=== PATIENT | male | born 1950 | race Caucasian/White ===

== ENCOUNTER 2016-05-22 05:28 | Inpatient (IN) | payer OTHER, MEDICARE ==
[~2016-05-22] VITALS: Ht 177.8 cm; Wt 106.6 kg
[~2016-05-22 05:28] MED LIST: ASPERDRINK81 MG PO; ASPIRIN81 M2 PO; JALYN 0.5-0.41 EACH PO; KEFLEX500 MG PO; LIPITOR80 MG PO; LISINOPRIL5 MG PO; LOW DOSE ASPIRI81 M1 PO; MULTIVITAMINS1 EAC3 PO; NORVASC5 MG PO; ONE DAILY1 EAC3 PO; PERCOCET 5/31 TABLET PO; PLAVIX75 MG PO; PRADAXA150 MG PO; Pradaxa PO; TOPROL XL50 MG PO; VISTARIL25 MG PO; ZETIA10 MG PO
[2016-05-22 07:41] LABS: BASOPHIL COUNT 0.1 K/uL (0-0.1); EOSINOPHIL COUNT 0.5 K/uL (0-0.3); HEMATOCRIT 55.3 % (38.0-50.0); IMMATURE GRANULOCYTE (%) 0.2 % (0.0-0.7); LYMPHOCYTE COUNT 0.9 K/uL (1.0-2.8); MCH 32.2 PG (29.0-34.0); MCHC 34.7 G/DL (30.0-36.0); MCV 92.6 FL (86-99); MEAN PLAT.VOLUME 12.3 uM^3 (9.0-12.4); MONOCYTE (%) 9.8 % (3-12); MONOCYTE COUNT 1.1 K/uL (0-0.8); NEUTROPHIL (%) 77.4 % (45-76); NEUTROPHIL COUNT 8.8 K/uL (1.8-6.4); PLATELET COUNT 162 K/uL (156-360); RBC DIS.WIDTH-CV 14.2 % (11.8-14.6); RBC DIS.WIDTH-SD 47.8 % (39-53); RED BLOOD COUNT 5.97 M/uL (4.00-5.50); WHITE BLOOD COUNT 11.3 K/uL (4.1-10.2)
[2016-05-22 08:11] LABS: ALKALINE PHOSPHATASE 81 IU/L (3-129); ANION GAP 9 MEQ/L (2-14); CHLORIDE 105 MEQ/L (99-109); GFR ESTIMATE (CALCULATED) > 59 mL/min/; GLUCOSE 117 mg/dL (70-99); SAMPLE HEMOLYSIS CHECK 0; SAMPLE ICTERIC CHECK 0; SAMPLE LIPEMIA CHECK 0; SODIUM 137 MEQ/L (136-147); TOTAL BILIRUBIN 1.1 MG/DL (0.0-1.0); UREA NITROGEN (BUN) 14 mg/dL (9-23)
[2016-05-22 09:14] LABS: AMYLASE 91 IU/L (1-118)
[2016-05-22] MEDS ORDERED: ASPIR-LOW81 MG PO (10:26)
[2016-05-22] MEDS ORDERED: OMEPRAZOLE40 M1 PO (10:28)
[2016-05-22] MEDS ORDERED: MULTI VITAMIN1 EACH PO (10:28)
[2016-05-22] MEDS ORDERED: AMOX TR-K CLV1 EAC4 PO (10:28)
[2016-05-22] MEDS ORDERED: ZOLPIDEM TARTRA10 MG PO (10:29)
[2016-05-22 12:58] VITALS: BP 120/83
[2016-05-22 15:54] LABS: METH RESISTANT S AUREUS PCR NEGATIVE (NEGATIVE)
[2016-05-22 16:00] LABS: PROBE CHECK PASS; SPECIMEN PROCESSING CONTROL PASS
[2016-05-22 20:05] VITALS: BP 117/66
[2016-05-22 22:26] VITALS: BP 102/56
[2016-05-23 06:42] LABS: BASOPHIL COUNT 0.1 K/uL (0-0.1); EOSINOPHIL (%) 5.9 % (0-5); EOSINOPHIL COUNT 0.6 K/uL (0-0.3); HEMATOCRIT 49.1 % (38.0-50.0); IMMATURE GRANULOCYTE (%) 0.1 % (0.0-0.7); LYMPHOCYTE COUNT 1.3 K/uL (1.0-2.8); MCH 32.1 PG (29.0-34.0); MCV 94.4 FL (86-99); MONOCYTE (%) 10.6 % (3-12); NEUTROPHIL (%) 69.3 % (45-76); NEUTROPHIL COUNT 6.7 K/uL (1.8-6.4); PLATELET COUNT 159 K/uL (156-360); RBC DIS.WIDTH-CV 14.5 % (11.8-14.6); RBC DIS.WIDTH-SD 50.3 % (39-53); WHITE BLOOD COUNT 9.7 K/uL (4.1-10.2)
[2016-05-23 06:52] LABS: ANION GAP 8 MEQ/L (2-14); CHLORIDE 105 MEQ/L (99-109); GFR ESTIMATE (CALCULATED) > 59 mL/min/; GLUCOSE 98 mg/dL (70-99); POTASSIUM 4.4 MEQ/L (3.7-5.4); SAMPLE HEMOLYSIS CHECK 1; SAMPLE ICTERIC CHECK 0; SAMPLE LIPEMIA CHECK 0; SODIUM 136 MEQ/L (136-147); UREA NITROGEN (BUN) 14 mg/dL (9-23)
[2016-05-23 08:14] VITALS: BP 114/72
[2016-05-23 16:48] VITALS: BP 113/80
[2016-05-23 23:12] VITALS: BP 115/65
[2016-05-24 07:23] VITALS: BP 136/79
[2016-05-24 07:35] LABS: BASOPHIL COUNT 0.1 K/uL (0-0.1); EOSINOPHIL (%) 7.1 % (0-5); EOSINOPHIL COUNT 0.7 K/uL (0-0.3); HEMATOCRIT 48.3 % (38.0-50.0); IMMATURE GRANULOCYTE (%) 0.1 % (0.0-0.7); LYMPHOCYTE COUNT 2.1 K/uL (1.0-2.8); MCHC 32.7 G/DL (30.0-36.0); MCV 94.7 FL (86-99); MEAN PLAT.VOLUME 12.3 uM^3 (9.0-12.4); NEUTROPHIL COUNT 5.3 K/uL (1.8-6.4); PLATELET COUNT 154 K/uL (156-360); RBC DIS.WIDTH-CV 14.4 % (11.8-14.6); RBC DIS.WIDTH-SD 49.8 % (39-53); WHITE BLOOD COUNT 9.1 K/uL (4.1-10.2)
[2016-05-24 08:05] LABS: ALKALINE PHOSPHATASE 67 IU/L (3-129); ANION GAP 7 MEQ/L (2-14); CHLORIDE 106 MEQ/L (99-109); GFR ESTIMATE (CALCULATED) > 59 mL/min/; GLUCOSE 103 mg/dL (70-99); POTASSIUM 5.1 MEQ/L (3.7-5.4); SAMPLE HEMOLYSIS CHECK 0; SAMPLE ICTERIC CHECK 0; SAMPLE LIPEMIA CHECK 0; SODIUM 140 MEQ/L (136-147); UREA NITROGEN (BUN) 14 mg/dL (9-23)
[2016-05-24 08:09] LABS: TOTAL BILIRUBIN 0.8 MG/DL (0.0-1.0)
[2016-05-24 16:30] VITALS: BP 108/69
[2016-05-24 22:43] VITALS: BP 141/74
[2016-05-25 06:15] LABS: BASOPHIL COUNT 0.1 K/uL (0-0.1); EOSINOPHIL (%) 4.3 % (0-5); EOSINOPHIL COUNT 0.5 K/uL (0-0.3); HEMATOCRIT 47.2 % (38.0-50.0); IMMATURE GRANULOCYTE (%) 0.2 % (0.0-0.7); LYMPHOCYTE COUNT 1.6 K/uL (1.0-2.8); MCH 31.4 PG (29.0-34.0); MCHC 33.9 G/DL (30.0-36.0); MCV 92.5 FL (86-99); MEAN PLAT.VOLUME 12.2 uM^3 (9.0-12.4); MONOCYTE (%) 11.1 % (3-12); MONOCYTE COUNT 1.3 K/uL (0-0.8); NEUTROPHIL (%) 69.4 % (45-76); NEUTROPHIL COUNT 7.8 K/uL (1.8-6.4); PLATELET COUNT 166 K/uL (156-360); RBC DIS.WIDTH-CV 13.8 % (11.8-14.6); RBC DIS.WIDTH-SD 46.9 % (39-53); WHITE BLOOD COUNT 11.3 K/uL (4.1-10.2)
[2016-05-25 06:40] LABS: ANION GAP 9 MEQ/L (2-14); CHLORIDE 105 MEQ/L (99-109); GFR ESTIMATE (CALCULATED) > 59 mL/min/; GLUCOSE 121 mg/dL (70-99); POTASSIUM 4.3 MEQ/L (3.7-5.4); SAMPLE HEMOLYSIS CHECK 1; SAMPLE ICTERIC CHECK 0; SAMPLE LIPEMIA CHECK 0; SODIUM 137 MEQ/L (136-147); UREA NITROGEN (BUN) 11 mg/dL (9-23)
[2016-05-25 07:22] VITALS: BP 143/93
[2016-05-25 16:32] VITALS: BP 158/89
[2016-05-25 21:16] LABS: POINT-OF-CARE METER ID UU13113725
[2016-05-25 22:50] VITALS: BP 152/88
[2016-05-26 06:29] LABS: EOSINOPHIL (%) 3.9 % (0-5); EOSINOPHIL COUNT 0.4 K/uL (0-0.3); IMMATURE GRANULOCYTE (%) 0.2 % (0.0-0.7); LYMPHOCYTE COUNT 1.6 K/uL (1.0-2.8); MONOCYTE (%) 10.9 % (3-12); MONOCYTE COUNT 1.1 K/uL (0-0.8); NEUTROPHIL COUNT 7.2 K/uL (1.8-6.4)
[2016-05-26 06:52] LABS: ANION GAP 8 MEQ/L (2-14); CHLORIDE 105 MEQ/L (99-109); GFR ESTIMATE (CALCULATED) > 59 mL/min/; GLUCOSE 119 mg/dL (70-99); POTASSIUM 4.2 MEQ/L (3.7-5.4); SAMPLE HEMOLYSIS CHECK 0; SAMPLE ICTERIC CHECK 0; SAMPLE LIPEMIA CHECK 0; SODIUM 137 MEQ/L (136-147); UREA NITROGEN (BUN) 9 mg/dL (9-23)
[2016-05-26 07:28] LABS: HEMATOCRIT 49.2 % (38.0-50.0); MCH 30.8 PG (29.0-34.0); MCHC 33.3 G/DL (30.0-36.0); MCV 92.3 FL (86-99); RBC DIS.WIDTH-CV 13.8 % (11.8-14.6); RBC DIS.WIDTH-SD 46.6 % (39-53); RED BLOOD COUNT 5.33 M/uL (4.00-5.50); WHITE BLOOD COUNT 10.4 K/uL (4.1-10.2)
[2016-05-26 08:04] LABS: MEAN PLAT.VOLUME 13.1 uM^3 (9.0-12.4); PLAT.SUFFICIENCY ADEQUATE; PLATELET COUNT 174 K/uL (156-360); USER ID SDF
[2016-05-26 08:38] VITALS: BP 161/97
[2016-05-26 16:17] VITALS: BP 162/83
[2016-05-26 23:28] VITALS: BP 142/89
[2016-05-27 06:12] LABS: BASOPHIL COUNT 0.1 K/uL (0-0.1); EOSINOPHIL (%) 5.2 % (0-5); EOSINOPHIL COUNT 0.5 K/uL (0-0.3); HEMATOCRIT 49.7 % (38.0-50.0); IMMATURE GRANULOCYTE (%) 0.2 % (0.0-0.7); LYMPHOCYTE COUNT 1.9 K/uL (1.0-2.8); MCHC 33.6 G/DL (30.0-36.0); MCV 92.2 FL (86-99); MEAN PLAT.VOLUME 12.8 uM^3 (9.0-12.4); MONOCYTE (%) 10.6 % (3-12); MONOCYTE COUNT 1.1 K/uL (0-0.8); NEUTROPHIL COUNT 6.4 K/uL (1.8-6.4); PLATELET COUNT 185 K/uL (156-360); RBC DIS.WIDTH-CV 13.9 % (11.8-14.6); RBC DIS.WIDTH-SD 46.7 % (39-53); RED BLOOD COUNT 5.39 M/uL (4.00-5.50); WHITE BLOOD COUNT 9.9 K/uL (4.1-10.2)
[2016-05-27 06:44] LABS: ANION GAP 11 MEQ/L (2-14); CHLORIDE 108 MEQ/L (99-109); GFR ESTIMATE (CALCULATED) > 59 mL/min/; GLUCOSE 107 mg/dL (70-99); POTASSIUM 3.9 MEQ/L (3.7-5.4); SAMPLE HEMOLYSIS CHECK 0; SAMPLE ICTERIC CHECK 0; SAMPLE LIPEMIA CHECK 0; SODIUM 140 MEQ/L (136-147); UREA NITROGEN (BUN) 9 mg/dL (9-23)
[2016-05-27 07:47] VITALS: BP 141/70
== END 2016-05-27 13:46 | disposition home health service (06) | DRG 863 ==
LOC: EME 05:28 → 5EAST 10:13 → EDOF 10:13 → 5EAST 11:43
PROVIDERS: Emergency Medicine; Internal Medicine
DX: T81.4XXA Infection following a procedure, initial encounter (principal); L03.211 Cellulitis of face; I80.8 Phlebitis and thrombophlebitis of other sites; I48.2 Chronic atrial fibrillation; I25.10 Atherosclerotic heart disease of native coronary artery without angina pectoris; I10 Essential (primary) hypertension; E78.5 Hyperlipidemia, unspecified; K21.9 Gastro-esophageal reflux disease without esophagitis; G47.00 Insomnia, unspecified; N40.0 Benign prostatic hyperplasia without lower urinary tract symptoms; D11.9 Benign neoplasm of major salivary gland, unspecified; Z95.5 Presence of coronary angioplasty implant and graft; Z87.891 Personal history of nicotine dependence; Z82.49 Family history of ischemic heart disease and other diseases of the circulatory system; Z79.82 Long term (current) use of aspirin
CPT/HCPCS: 70491; 76937; 80048; 80053; 80202; 82150; 82948; 83605; 85025; 85027; 87040; 87641; 94760; 99202; 99281; 99285; J0295; J0690; J1170; J2405; J2543; J3370; J7030; J7050

== ENCOUNTER 2017-05-04 01:49 | Emergency (ER) | payer OTHER, MEDICARE ==
[~2017-05-04] VITALS: Ht 175.3 cm; Wt 109.0 kg
[~2017-05-04 01:49] MED LIST changes: +AMOX TR-K CLV1 EAC4 PO; +ASPIR-LOW81 MG PO; +MULTI VITAMIN1 EACH PO; +OMEPRAZOLE40 M1 PO; +ZOLPIDEM TARTRA10 MG PO
[2017-05-04] MEDS ORDERED: PERCOCET 5/31 TABLET PO (02:58)
[2017-05-04 03:21] VITALS: BP 120/90
== END 2017-05-04 03:22 | disposition home or self-care (01) ==
LOC: EME 01:49
DX: S43.101A Unspecified dislocation of right acromioclavicular joint, initial encounter (principal); W01.0XXA Fall on same level from slipping, tripping and stumbling without subsequent striking against object, initial encounter; Y92.003 Bedroom of unspecified non-institutional (private) residence as the place of occurrence of the external cause; E78.5 Hyperlipidemia, unspecified; I25.2 Old myocardial infarction; I25.10 Atherosclerotic heart disease of native coronary artery without angina pectoris; Z95.1 Presence of aortocoronary bypass graft; Z95.5 Presence of coronary angioplasty implant and graft; Z79.82 Long term (current) use of aspirin; F17.200 Nicotine dependence, unspecified, uncomplicated
CPT/HCPCS: 73030; 99281; 99284; J3010

== ENCOUNTER 2017-09-29 06:40 | Day surgery (SDC) | payer OTHER, MEDICARE ==
[~2017-09-29] VITALS: Ht 177.8 cm; Wt 95.2 kg
[~2017-09-29 06:40] MED LIST changes: +AMBIEN10 MG PO; +MEN 50 PLUS MU1 EACH PO; -MULTI VITAMIN1 EACH PO; +TYLENOL EXTRA500 MG PO; +VITAMIN D31000 UNIT PO; +ZESTRIL5 MG PO; -ZOLPIDEM TARTRA10 MG PO
[2017-09-29 12:36] LABS: HEMATOCRIT 50.9 % (38.0-50.0); MCV 94.4 FL (86-99)
[2017-09-29 12:44] LABS: HEMOGLOBIN 16.7 G/DL (12.5-16.6)
== END 2017-09-29 14:05 | disposition home or self-care (01) ==
LOC: CATH
PROVIDERS: Surgery
PROC: 069 Lower Veins, Drainage (ICD-10-PCS; principal; 2017-09-29)
PROC: 047L34Z Dilation of Left Femoral Artery with Drug-eluting Intraluminal Device, Percutaneous Approach (ICD-10-PCS; principal; 2017-09-29)
DX: I70.202 Unspecified atherosclerosis of native arteries of extremities, left leg (principal); I10 Essential (primary) hypertension; I48.91 Unspecified atrial fibrillation; M48.062 Spinal stenosis, lumbar region with neurogenic claudication; K21.9 Gastro-esophageal reflux disease without esophagitis; Z79.82 Long term (current) use of aspirin; Z79.01 Long term (current) use of anticoagulants; Z87.891 Personal history of nicotine dependence
CPT/HCPCS: 85014; 85018; C1725; C1760; C1769; C1874; C1887; C1894; J0690; J1644; J2250; J3010; S0020